=== PATIENT | male | born 1980 | race African-American/Black ===

== ENCOUNTER 2016-08-12 17:39 | Emergency (ER) | payer OTHER ==
[2016-08-12] MEDS ORDERED: Promethazine HCl 25 MG/ML VIAL ONE (17:52)
[2016-08-12] MEDS ORDERED: Pantoprazole 40 MG VIAL ONE (18:37)
[2016-08-12 18:41] LABS: Hematocrit 43.2 % (42.0-52.0)
[2016-08-12 18:45] LABS: Lactic Acid - Sepsis 2.8 mmol/L (0.5-2.2)
[2016-08-12 18:47] LABS: PTT 26.3 SEC (22.9-36.1)
[2016-08-12 18:52] LABS: ALT (SGPT) 43 U/L (0-55); AST (SGOT) 29 U/L (5-34); Alkaline Phosphatase 105 U/L (40-150); Amylase 47 U/L (25-125); Anion Gap 21 mmol/L (10-20); BUN (Urea Nitrogen) 15 mg/dL (8.9-20.6); Bilirubin, Total 0.4 mg/dL (0.2-1.2); Calc. Creatinine Clearance 0 mL/min (70-130); Carbon Dioxide 19 mmol/L (22-29); Chloride 101 mmol/L (98-107); Estimated GFR-MDRD 79; Globulin 3.6 g/dL (2.4-3.5); Lipase 4 U/L (8-78); Protein, Total 7.7 g/dL (6.0-8.3)
[2016-08-12 19:20] LABS: Bilirubin Negative (Negative); Blood, Urine Negative (Negative); Glucose, Urine (Dipstick) 500 mg/dL (Negative); Ketone, Urine 40 mg/dL (Negative); Nitrite Negative (Negative); Protein, Urine (Dipstick) 30 mg/dL (Neg-Trace); Urobilinogen 0.2 mg/dL (0.2-1.0)
[2016-08-12 19:28] LABS: RBC/HPF 0-3 HPF (0-3); WBC/HPF 0-3 HPF (0-3)
[2016-08-12] MEDS ORDERED: Piperacillin/Tazobactam 3.375 GM VIAL ONE (19:54)
[2016-08-12] MEDS ORDERED: Sodium Chloride 0.9% 100 ML ONE (19:55)
[2016-08-12] MEDS ORDERED: Sodium Chloride 0.9% 250 ML 250 ML ONE (20:15)
--- NOTE | 2016-08-12 20:33 | RAD ---
PORTABLE CHEST: Date: 08-12-16 Time: 6:21 p.m. History: Nausea, vomiting. FINDINGS: The heart size is normal. The lungs are expanded without focal areas of consolidation, pneumothorax , or pleural effusions. IMPRESSION: No radiographic evidence of acute cardiopulmonary process. POS: [facility]
[2016-08-12] MEDS ORDERED: Morphine Sulfate 2 MG/ML SYRINGE ONE (20:35)
[2016-08-12] MEDS ORDERED: Sodium Chloride 0.9% 1,000 ML ONE (20:35)
[2016-08-12 21:04] LABS: Base Excess -1.3 mEq/L (0 (+/- 2.5)); pH (venous) 7.37 (7.34-7.37)
--- NOTE | 2016-08-12 21:11 | CT ---
CT ABDOMEN AND PELVIS WITHOUT CONTRAST: History: Nausea, vomiting. FINDINGS: Absence of oral and IV contrast reduces the sensitivity of the exam for evaluation of solid organs a nd bowel. FINDINGS: There is a 9 mm peripheral nodule in the right lower lobe. A 6 mm nodule is seen in the left lung b ase. No free air or free fluid is seen in the abdomen or pelvis. No calcified gallstones are ident ified. No calculi are seen in the kidneys, ureters, or the urinary bladder. No hydroureteronephrosis is se en on either side. The small bowel loops are not abnormally dilated. There is fecal material in th e colon. No acute sesamoids are seen. IMPRESSION: 1. Bibasilar lung nodules. Dedicated CT scan of the chest is recommended on a non-emergent basis. 2. No CT evidence of urinary tract calculi or obstruction. POS: [facility]
[2016-08-12] MEDS ORDERED: Insulin Regular 300 UNITS/3 ML VIAL ONE (21:29)
[2016-08-12 21:35] LABS: Hematocrit 38.9 % (42.0-52.0)
[2016-08-12 21:37] LABS: Mean Platelet Volume 7.6 fL (7.4-10.4); Red Blood Cell (RBC) Count 5.03 mill/uL (4.70-6.10); White Blood Cell (WBC) Count 7.4 thou/uL (4.8-10.8)
[2016-08-12 21:38] LABS: #Basophils 0.8 thou/uL (0.0-0.2); #Lymphocytes 0.8 thou/uL (1.20-3.40); #Monocytes 0.6 thou/uL (0.11-0.59); #Neutrophils 5.8 thou/uL (1.40-6.50); %Basophils 1.1 % (0.0-1.0); %Eosinophils 0.5 % (0.0-10.0); %Lymphocytes 10.9 % (21.0-51.0); %Monocytes 8.2 % (0.0-10.0)
--- NOTE | 2016-08-12 22:16 | ERRECORD ---
[facility] EMERGENCY RECORD ADMIN (18:36 LCAS) MERGE: Ambulance Sun Aug 12, 2016 17:27. HPI GI BLEED (19:23 JOHE) CHIEF COMPLAINT: Patient presents for evaluation of hematemesis, Number of times: 1, described as bright red blood. HISTORIAN: History provided by patient, Additional history obtained from EMS, Pt. comes from [facility] with complaint of one week of nonbloody, nonbilious emesis, and development yesterday of subjective F&C. Today patient reports vomited so many times that he began having pain in the chest and throat, followed by one episode of reportedly large amount of bright red blood (patient cannot quantify the amount), so patient brought to ED. Patient reports burning epigastric pain radiating to the chest, and N&V. States he has also had watery black diarrhea several times daily for past several days. Patient denies fall, trauma, change in diet and ill contacts. No other sources of bleeding or excessive bruising. Patient does report that he has a gastric ulcer, for which he takes ranitidine. Not taking any blood thinning medications. LOCATION: Symptoms are localized, most severe in the epigastrium, Radiation to the chest, No migration of pain. QUALITY: Pain is sharp in nature, described as stabbing, described as burning. SEVERITY: Maximum severity of symptoms severe, Currently symptoms are severe. TIME COURSE: Gradual onset of symptoms, 7, days ago, Symptoms are constant, Symptoms are worsening. ASSOCIATED WITH: Associated with abdominal pain, Associated with chills, Associated with dizziness, Associated with fever, No associated flank pain, Associated with loss of appetite, Associated with nausea, No associated night sweats, No associated rectal surgery, No associated syncope, No associated trauma, Associated with inability to tolerate oral intake, Associated with vomiting, Associated with weakness, Denies any other complaints. EXACERBATED BY: Patient's condition exacerbated by eating. RELIEVED BY: Patient's condition relieved by nothing. RISK FACTOR: Risk factors for GI bleed, No non-steroidal anti-inflammatory drug use, No alcohol abuse, No smoking, No congestive heart failure, No liver disease, No coagulopathy, No Helicobacter pylori infection, No Spencer-Wallace syndrome, include history of previous GI bleed, No history of AAA repair. ROS (19:28 JOHE) CONSTITUTIONAL: Historian reports chills, reports fever, reports malaise, denies night sweats, reports weakness. EYES: Historian denies eye pain, denies eye redness, denies &a-1R&a+25V*p+0X*[id number]*c202B*c15G*c2P*p-0X&a-25V&a+1R Name: Carlos Luna : 1980 M36 MedRec: [id number] AcctNum: [id number] Prepared: SatAug 13, 2016 05:43 by Interface Page 1 of 6 pMD [facility] EMERGENCY RECORD vision changes. ENT: Historian denies drooling, denies dysphagia, denies epistaxis, denies otalgia, denies rhinorrhea, denies sinus pain, reports sore throat, denies stridor, denies voice changes. CARDIOVASCULAR: Historian reports chest pain, denies diaphoresis, denies dyspnea on exertion, denies orthopnea, denies syncope, denies palpitations. no carotid bruits. RESPIRATORY: Historian denies cough, reports shortness of breath, denies sputum, denies stridor, denies wheezing. GI: Historian reports abdominal pain, reports appetite changes, denies constipation, reports diarrhea, reports hematemesis, denies hematochezia, reports melena, reports nausea, reports stool changes, reports vomiting. GENITOURINARY MALE: Historian denies dysuria, denies hematuria, reports hesitancy, denies urinary frequency, reports urine output changes, denies urinary urgency. MUSCULOSKELETAL: Historian denies back pain, denies joint redness, denies joint stiffness, denies joint swelling, denies neck pain. SKIN: Historian denies rash, denies skin changes, denies skin lesions. NEUROLOGIC: Historian reports dizziness, denies focal weakness, denies gait changes, denies headache, denies paralysis, denies paresthesias, denies seizures. HEMO/LYMPHATIC: Historian denies abnormal blood clotting, denies easy bruising, denies gum bleeding, denies petechiae. PSYCHIATRIC: Historian denies alcohol abuse, denies drug abuse. NOTES: All systems reviewed, negative except as described above. PAST MEDICAL HISTORY (17:52 LCAS) MEDICAL HISTORY: Notes: GASTROPARESIS, SEIZURES, Past medical history includes history of diabetes, history of hyperlipidemia, history of hypertension, pulmonary disease. asthma. MALE SURGICAL HISTORY: Patient has no surgical history. PSYCHIATRIC HISTORY: Psychiatric history includes, depression. SOCIAL HISTORY: Patient denies alcohol use, Patient denies drug use, Patient has no smoking history, Lives, HALFWAY. KNOWN ALLERGIES No Known Drug Allergies CURRENT MEDICATIONS Aspir-81: TABLET, DELAYED RELEASE (ENTERIC COATED) : Strength - 81 mg : ORAL Patient Dose: 81 mg Oral once a day. (18:31 LCAS) levETIRAcetam: TABLET : Strength - 1,000 mg : ORAL &a-1R&a+25V*p+0X*[id number]*c202B*c15G*c2P*p-0X&a-25V&a+1R Name: Carlos Luna : 1980 M36 MedRec: [id number] AcctNum: [id number] Prepared: SatAug 13, 2016 05:43 by Interface Page 2 of 6 pMD [facility] EMERGENCY RECORD Patient Dose: 2 times a day (before meals). (18:32 LCAS) lisinopril: TABLET : Strength - 20 mg : ORAL Patient Dose: 20 mg Oral once a day. (18:32 LCAS) nortriptyline: CAPSULE : Strength - 75 mg : ORAL Patient Dose: once a day (in the evening). (18:32 LCAS) pravastatin: TABLET : Strength - 20 mg : ORAL Patient Dose: once a day (in the evening). (18:33 LCAS) ranitidine HCl: TABLET : Strength - 150 mg : ORAL Patient Dose: 150 mg Oral 2 times a day. (18:33 LCAS) hydrochlorothiazide: TABLET : Strength - 25 mg : ORAL Patient Dose: 25 mg Oral once a day. (18:34 LCAS) FLUoxetine: CAPSULE : Strength - 40 mg : ORAL Patient Dose: 40 mg Oral once a day. (18:34 LCAS) NovoLIN N: CARTRIDGE (ML) : Strength - 100 unit/mL : SUBCUTANEOUS Patient Dose: 18/16 units Subcutaneous 2 times a day.18 IN AM 16 IN PM. (18:34 LCAS) Qvar: AEROSOL WITH ADAPTER (GRAM) : Strength - 40 mcg : INHALATION Patient Dose: 80 mcg Inhaler 2 times a day. (18:35 LCAS) VITAL SIGNS VITAL SIGNS: BP: 181/96, Pulse: 117, Resp: 20, Temp: 99.1 (Oral), O2 sat: 97, Time: 08/12/2016 17:44. (17:44 LCAS) BP: 171/92, Pulse: 120, Resp: 21, O2 sat: 98 on RA, Time: 08/12/2016 18:51. (18:51 LCAS) BP: 168/87, Pulse: 113, Resp: 20, O2 sat: 99 on Room Air, Time: 08/12/2016 20:30. (20:30 [facility]) Pain: 9, Time: 08/12/2016 20:35. (20:35 [facility]) BP: 156/100, Pulse: 118, Resp: 20, O2 sat: 98 on Room Air, Time: 08/12/2016 22:02. (22:02 [facility]) BP: 151/83, Pulse: 115, Resp: 20, Pain: 7, O2 sat: 99 on Room Air, Time: 08/12/2016 21:30. (21:30 [facility]) BP: 143/86, Pulse: 114, Resp: 20, O2 sat: 97 on Room Air, Time: 08/12/2016 19:45. (19:45 [facility]) Temp: 99.8 (Oral), Time: 08/12/2016 22:06. (22:06 [facility]) PHYSICAL EXAM (19:30 [facility]) CONSTITUTIONAL: Vital Signs Reviewed, Patient appears non toxic, Patient alert and oriented to person, place and time. HEAD: Head exam normal, Head exam included findings of head atraumatic, normocephalic. EYES: Eye exam normal, Eye exam included findings of eyelids normal to inspection, Pupils equally round and reactive to light, &a-1R&a+25V*p+0X*[id number]*c202B*c15G*c2P*p-0X&a-25V&a+1R Name: Carlos Luna : 1980 M36 MedRec: [id number] AcctNum: [id number] Prepared: SatAug 13, 2016 05:43 by Interface Page 3 of 6 pMD [facility] EMERGENCY RECORD Extraocular muscles intact, Conjunctiva normal, Sclera normal, No scleral icterus or pallor. ENT: Nose exam normal, no nasal deformity, no bleeding from nares, no bleeding from hypopharynx, no foreign body visualized, no septal hematoma, no septal necrosis, No turbinate mucosa discharge, Pharynx, injected bilaterally, no swelling, symmetrical, Uvula exam normal, midline, no edema, Tonsil exam normal, not enlarged, no exudates, Mouth exam included findings of, mucous membranes dry, no drooling, no lesions, no lacerations, Tongue not elevated. NECK: Neck exam normal, Neck exam included findings of normal range of motion, Trachea midline, no carotid bruits, no meningeal signs, no tenderness, no abrasions, no contusions, no ecchymosis. RESPIRATORY CHEST: Respiratory and chest exam normal, Respiratory exam included findings of no respiratory distress, Breath sounds clear, No wheezing, No rales, No rhonchi, Breath sounds not absent, Breath sounds not diminished, Chest exam included findings of chest movement symmetrical, Chest expansion equal, CTAB, good air movement bilaterally. CARDIOVASCULAR: Cardiovascular exam included findings of, rate tachycardic, rhythm regular, Heart sounds normal, Pedal pulses normal, Tachy, RR, no R/M/G. + pulses all ext., no bruits, no edema. ABDOMEN MALE: Abdominal exam included findings of abdomen tender, diffusely, moderate intensity, Bowel sounds normal, no pulsatile masses, no peritoneal signs, no rigidity, no guarding, no rebound, Soft, ND, mildly TTP diffusely, greatest in epigastrium. No guarding or rebound. + BS. No CVAT. BACK: Back exam normal, Back exam included findings of normal inspection, range of motion normal, no costovertebral angle tenderness. UPPER EXTREMITY: Upper extremity exam normal, Upper extremity exam included findings of inspection normal, Range of motion normal, Motor strength normal, Radial pulse normal. LOWER EXTREMITY: Lower extremity exam normal, Lower extremity exam included findings of inspection normal, Range of motion normal, Motor strength normal, Posterior tibial pulse normal, Pedal pulse normal, no edema. NEURO: Norman coma scale 15, Neuro exam findings include patient oriented to person, place and time, Speech normal, Cranial nerves intact, no focal motor deficits, no focal sensory deficits. SKIN: Skin exam normal, Skin exam included findings of skin warm, dry, and normal in color, no rash. EKG INTERPRETATION (18:11 JOHE) 12 LEAD EKG INTERPRETATION: 12 lead EKG interpreted by Emergency Department Physician at time of study, 12 lead EKG shows, sinus tachycardia, Rate (beats per minute): 113, with no ectopics, Conduction normal, ST segments normal, T waves normal, [place] normal, No other findings. &a-1R&a+25V*p+0X*m0068Y*c202B*c15G*c2P*p-0X&a-25V&a+1R Name: Carlos Luna : 1980 M36 MedRec: [id number] AcctNum: [id number] Prepared: SatAug 13, 2016 05:43 by Interface Page 4 of 6 pMD [facility] EMERGENCY RECORD MEDICATION ADMINISTRATION SUMMARY Drug Name: HumuLIN R, Dose Ordered: 5 units, Route: IV Push, Status: Given, Time: 21:35 08/12/2016, Drug Name: morphine intravenous, Dose Ordered: 2 mg, Route: IV Push, Status: Given, Time: 20:41 08/12/2016, Drug Name: Normal Saline, Dose Ordered: 1000 mg, Route: IV Fluid Infusion, Status: Given, Time: 20:40 08/12/2016, Drug Name: vancomycin intravenous, Dose Ordered: 1 g, Route: IV Piggy Back, Status: Given, Time: 20:30 08/12/2016, Drug Name: Zosyn, Dose Ordered: 3.375 g, Route: IV Piggy Back, Status: Given, Time: 20:05 08/12/2016, Drug Name: Protonix intravenous, Dose Ordered: 80 mg, Route: IV Push, Status: Given, Time: 18:50 08/12/2016, Drug Name: morphine intravenous, Dose Ordered: 4 mg, Route: IV Push, Status: Given, Time: 18:49 08/12/2016, Drug Name: Normal Saline, Dose Ordered: 1000 mg, Route: IV Fluid Infusion, Status: Given, Time: 17:55 08/12/2016, Drug Name: Phenergan injection, Dose Ordered: 25 mg, Route: Intramuscular, Status: Given, Time: 17:55 08/12/2016, Detailed record available in Medication Service section. DOCTOR NOTES TEXT: Discussed patient with Dr. Kaufman at [facility], who says he only takes call for the floor, and wants us to talk to ICU physician before accepting transfer. They will call us back shortly. (21:27 JOHE) [facility] (Dr. Hansen and Dr. Kaufman) feel patient would benefit from not going to [facility] due to distance, better to stay at [facility]. Discussed patient with Dr. Garcia, who accepts patient in transfer to [facility]. (21:57 JOHE) Addendum (correction) - Patient was transferred in stable condition via ambulance to [facility]. Patient was not transferred to [facility]. Dr. Garcia accepted patient to [facility] not [facility]. (SatAug 13, 2016 05:37 JOHE) PROBLEM LIST No recorded problems DIAGNOSIS (20:13 JOHE) FINAL: PRIMARY: gi bleed, ADDITIONAL: Lactic acidosis. PRESCRIPTION No recorded prescriptions DISPOSITION PATIENT: Disposition Type: Transfer, Disposition: [facility] - [place], Disposition Transport: Ambulance, Condition: Fair. (20:13 JOHE) &a-1R&a+25V*p+0X*p1393D*c202B*c15G*c2P*p-0X&a-25V&a+1R Name: Carlos Luna : 1980 [facility] [place] MedRec: [id number] AcctNum: [id number] Prepared: SatAug 13, 2016 05:43 by Interface Page 5 of 6 pMD [facility] EMERGENCY RECORD Patient left the department. (22:41 [facility]) Disposition: Transfer to [facility]. (SatAug 13, 2016 05:12 [facility]) Mckeon: ZANDER=MD Anton, Chago MONTANO=JESSENIA Andrade, Germania [facility]=JESSENIA Mcginnis, Quiana &a-1R&a+25V*p+0X*[id number]*c202B*c15G*c2P*p-0X&a-25V&a+1R Name: Carlos Luna : 1980 6 MedRec: [id number] AcctNum: [id number] Prepared: SatAug 13, 2016 05:43 by Interface Page 6 of 6 pMD MTDD
--- NOTE | 2016-08-12 22:22 | PICIS ---
[facility] EMERGENCY RECORD ADMIN MERGE: Ambulance SatAug 12, 2016 17:27. (18:36 LCAS) TRIAGE ([place] Aug 12, 2016 17:42 BE) PATIENT: NAME: Carlos Luna, AGE: 36, GENDER: male, : Sat1980, TIME OF GREET: SatAug 12, 2016 17:39, ECODE BILLING MAP: [facility], Zip Code: [address], KG WEIGHT: 72.57, PHONE: , , , PERSON ID: [id number]. (SatAug 12, 2016 17:42 BE) TRIAGE NOTES: N/V. (SatAug 12, 2016 17:42 BE) COMPLAINT: NAUSEA,VOMITING. ([place] Aug 12, 2016 17:42 BE) ADMISSION: URGENCY: 4 Non Urgent, ADMISSION SOURCE: Detention/[facility], TRANSPORT: AMBULANCE - [facility], BED: ER -04. ([place] Aug 12, 2016 17:42 MCBE) SIRS SCORING: Heart Rate 110-139 (2), Temp range 96.8-101.1 (0), respiratory rate 12-24 (0), Mental Status altered: no (0), Infection or Suspected Infection: No. (17:52 LCAS) TRIAGE SCREENING: Patient denies suicidal ideation, Patient denies presence of domestic violence. (17:52 LCAS) TREATMENTS IN PROGRESS: Site: L hand, Gauge: 22, IV: .9NS, Amount Infused 100ML, Treatments given Prehospital: ZOFRAN. (17:52 LCAS) PROVIDERS: TRIAGE NURSE: Inessa Mabry. ([place] Aug 12, 2016 17:42 BE) KNOWN ALLERGIES No Known Drug Allergies CURRENT MEDICATIONS Aspir-81: TABLET, DELAYED RELEASE (ENTERIC COATED) : Strength - 81 mg : ORAL Patient Dose: 81 mg Oral once a day. (18:31 LCAS) levETIRAcetam: TABLET : Strength - 1,000 mg : ORAL Patient Dose: 2 times a day (before meals). (18:32 LCAS) lisinopril: TABLET : Strength - 20 mg : ORAL Patient Dose: 20 mg Oral once a day. (18:32 LCAS) nortriptyline: CAPSULE : Strength - 75 mg : ORAL Patient Dose: once a day (in the evening). (18:32 LCAS) pravastatin: TABLET : Strength - 20 mg : ORAL Patient Dose: once a day (in the evening). (18:33 LCAS) ranitidine HCl: TABLET : Strength - 150 mg : ORAL Patient Dose: 150 mg Oral 2 times a day. (18:33 LCAS) hydrochlorothiazide: TABLET : Strength - 25 mg : ORAL Patient Dose: 25 mg Oral once a day. (18:34 LCAS) &a-1R&a+25V*p+0X*y9886V*c202B*c15G*c2P*p-0X&a-25V&a+1R Name: Carlos Luna : 1980 6 MedRec: [id number] AcctNum: [id number] Prepared: SatAug 13, 2016 05:43 by Interface Page 1 of 21 pMD [facility] EMERGENCY RECORD FLUoxetine: CAPSULE : Strength - 40 mg : ORAL Patient Dose: 40 mg Oral once a day. (18:34 LCAS) NovoLIN N: CARTRIDGE (ML) : Strength - 100 unit/mL : SUBCUTANEOUS Patient Dose: 18/16 units Subcutaneous 2 times a day.18 IN AM 16 IN PM. (18:34 LCAS) Qvar: AEROSOL WITH ADAPTER (GRAM) : Strength - 40 mcg : INHALATION Patient Dose: 80 mcg Inhaler 2 times a day. (18:35 LCAS) VITAL SIGNS VITAL SIGNS: BP: 181/96, Pulse: 117, Resp: 20, Temp: 99.1 (Oral), O2 sat: 97, Time: 08/12/2016 17:44. (17:44 LCAS) BP: 171/92, Pulse: 120, Resp: 21, O2 sat: 98 on RA, Time: 08/12/2016 18:51. (18:51 LCAS) BP: 168/87, Pulse: 113, Resp: 20, O2 sat: 99 on Room Air, Time: 08/12/2016 20:30. (20:30 [facility]) Pain: 9, Time: 08/12/2016 20:35. (20:35 [facility]) BP: 156/100, Pulse: 118, Resp: 20, O2 sat: 98 on Room Air, Time: 08/12/2016 22:02. (22:02 [facility]) BP: 151/83, Pulse: 115, Resp: 20, Pain: 7, O2 sat: 99 on Room Air, Time: 08/12/2016 21:30. (21:30 [facility]) BP: 143/86, Pulse: 114, Resp: 20, O2 sat: 97 on Room Air, Time: 08/12/2016 19:45. (19:45 [facility]) Temp: 99.8 (Oral), Time: 08/12/2016 22:06. (22:06 [facility]) NURSING ASSESSMENT: ABDOMEN WITH PROCEDURES (17:44 [facility]) CONSTITUTIONAL: Complex assessment performed, Patient arrives, via Emergency Medical Services, Unsteady gait, Assistance to cart, History obtained from patient, Patient appears, generally ill, Patient cooperative, Patient alert, Oriented to person, place and time, Skin warm, Skin dry, Skin normal in color, Mucous membranes pink, Mucous membranes, dry, Patient is well-groomed. ABDOMEN: Abdomen assessment findings include abdomen symmetrical, Abdomen soft, tender, diffusely, Associated with nausea, Associated with vomiting, history of vomiting, REPORTS VOMITING X 1 WEEK WITH 1 EPISODE OF VOMITING BLOOD, Associated with diarrhea, watery. GENITOURINARY MALE: Associated with urinary complaints described as, difficulty urinating. SAFETY: Side rails up, Cart/Stretcher in lowest position, Call light within reach, Hospital ID band on, Notes: GUARDS AT BS. NURSING ASSESSMENT: FALL RISK (22:01 [facility]) FALL RISK: Fall risk assessment findings include: no history of falls (0), Total score 0, No risk for fall. &a-1R&a+25V*p+0X*c6992P*c202B*c15G*c2P*p-0X&a-25V&a+1R Name: Carlos Luna : 1980 M36 MedRec: [id number] AcctNum: [id number] Prepared: SatAug 13, 2016 05:43 by Interface Page 2 of 21 pMD [facility] EMERGENCY RECORD NURSING ASSESSMENT: SKIN (22:07 [facility]) SKIN: Inspection findings include: No pressure ulcer to the shoulder, Inspection findings include no pressure ulcer to the elbow, Inspection findings include no pressure ulcers to the hip, Inspection findings include no pressure ulcer to the sacrum, Inspection findings include no pressure ulcer to the heel, Inspection findings include no pressure ulcer, Inspection findings include no pressure ulcer. NURSING PROCEDURE: BEDSIDE SIRS TESTING (22:05 [facility]) SCORES: Heart Rate 55-109 (0), Temp range 96.8-101.1 (0), respiratory rate 12-24 (0), Latest WBC 3-14.9 (0), Mental Status altered: no (0). NURSING PROCEDURE: BEDSIDE TESTING GLUCOSE: Glucose testing indicated for hyperglycemia, Venous blood sample, Result (mg/dl) 294. (21:20 [facility]) Glucose testing indicated for hyperglycemia, Capillary blood sample, Result (mg/dl) 220. (22:15 [facility]) FOLLOW-UP: After procedure, results given to Dr. KNIGHT. (22:15 [facility]) NURSING PROCEDURE: ELECTROMECHANIC (17:42 [facility]) ELECTROMECHANIC: Cardiac monitoring indicated for TACHYCARDIC, Patient placed on monitoring manager, Patient placed on non-invasive blood pressure monitor, with disposable blood pressure cuff applied, Patient placed on continuous pulse oximetry, Adult/pediatric oxisensor applied, Oxygen saturation 98%. FOLLOW-UP: After procedure, alarms set and on, After procedure, patient tolerating monitoring. NURSING PROCEDURE: EKG CHART (18:09 [facility] PATIENT IDENTIFIER: Patient actively involved in identification process, Patient's identity verified by patient stating name, Patient's identity verified by patient stating date, Patient's identity verified by hospital ID bracelet. EKG: EKG indicated for n/v. FOLLOW-UP: After procedure, EKG for interpretation given to Dr. KNIGHT. NURSING PROCEDURE: IV IV SITE 1: IV established, to the right hand, using a 20 gauge catheter, in four attempts, Saline lock established, Flushed with normal saline (mls): 10, Labs drawn at time of placement, labeled in the presence of the patient and sent to lab. (18:26 LCAS) IV SITE 2: IV established, to the left hand, using a 22 gauge catheter, Saline lock established, Notes: STARTED INTERACTIVE MEDIA MARKETING DIRECTOR. IV INTACT. (18:51 LCAS) FOLLOW-UP SITE 1: After procedure, 2x3 ensure dressing applied, &a-1R&a+25V*p+0X*h6070V*c202B*c15G*c2P*p-0X&a-25V&a+1R Name: Carlos Luna : 1980 M36 MedRec: [id number] AcctNum: [id number] Prepared: SatAug 13, 2016 05:43 by Interface Page 3 of 21 pMD [facility] EMERGENCY RECORD After procedure, IV line connections checked and properly labeled, After procedure, no drainage at IV site, After procedure, no swelling at IV site, After procedure, no redness at IV site. (18:26 [facility]AS) NOTES: Notes: BILATERAL IV'S CONTINUED UPON TRANSFER. (22:28 [facility]) SAFETY: Side rails up, Cart/Stretcher in lowest position, Call light within reach, Hospital ID band on. (18:26 [facility]) NURSING PROCEDURE: LAB DRAW PATIENT IDENTIFIER: Patient actively involved in identification process, Patient's identity verified by patient stating name, Patient's identity verified by patient stating date, Patient's identity verified by hospital ID bracelet. (19:40 [facility]) LAB DRAW: Lab draw indicated for obtaining specimens for evaluation, Lab draw indicated for 2nd set of Blood Cultures, Initial lab draw performed, by venipuncture, from right hand, in one attempt, Blood cultures labeled in the presence of the patient and sent to lab. (19:40 [facility]) Lab draw indicated for obtaining specimens for evaluation, Subsequent lab draw performed, from vascular access device, existing IV site, SITE #2- LEFT HAND, After labs drawn, device flushed with saline, Lab specimens labeled in the presence of the patient and sent to lab, 10ML WASTED. 3ML DRAWN FOR SAMPLE, Notes: VBG. (20:55 [facility]) Lab draw indicated for obtaining specimens for evaluation, Subsequent lab draw performed, from vascular access device, SITE #2- LEFT HAND, After labs drawn, device flushed with saline, Lab specimens labeled in the presence of the patient and sent to lab, 10ML WASTED. 3ML DRAWN FOR SAMPLE, Notes: H&H RECHECK. (21:20 [facility]) FOLLOW-UP: After procedure, dressing applied to site, After procedure, no swelling at site, After procedure, no active bleeding from site. (19:40 [facility]) NURSING PROCEDURE: NURSE NOTES NURSES NOTES: Notes: PT AT RADIOLOGY. (18:30 LCAS) Patient in no apparent distress, Patient resting quietly. (18:51 LCAS) Patient in no apparent distress, Notes: PATIENT REPORT DIFFICULTY BREATHING AND FEELING LIKE HIS THROAT IS CLOSING. MD NOTIFIED. LUNG SOUNDS CLEAR BILATERALLY. THROAT EXAM UNREMARKABLE. (18:52 LCAS) Notes: URINE COLLECTED AND SENT TO LAB. BC X1 COLLECTED FROM LEFT HAND. (19:14 LCAS) Patient in no apparent distress, Patient resting quietly, Shift change report given, Notes: GUARDS AT BS. (19:17 LCAS) Notes: call from Jacquelyn (coordinator) at [facility] requesting further information, will call back and let us know if a bed is available. (20:37 [facility]) VITAL SIGNS: BP: 171, / 92, Pulse: 120, Resp: 21, O2 sat: 98, on: RA. (18:51 LCAS) NURSING PROCEDURE: TRANSFER (22:28 [facility]) &a-1R&a+25V*p+0X*p3910Y*c202B*c15G*c2P*p-0X&a-25V&a+1R Name: Carlos Luna : 1980 M36 MedRec: [id number] AcctNum: [id number] Prepared: SatAug 13, 2016 05:43 by Interface Page 4 of 21 D [facility] EMERGENCY RECORD TRANSFER: Reason for transfer need for specialized care, Diagnosis: UPPER GI BLEED, Accepting institution: [facility] ER, Accepting physician: RAMONA, Referring physician: ANTONIA, Transported by non-urgent ambulance, accompanied by emergency medical services personnel, Report called to receiving facility, JESSENIA HARRIS, Provided opportunity to answer questions, Summary of Care printed, Copy of patient record prepared for receiving facility, Patient consent for transfer signed. BELONGINGS: Belongings and valuables with patient upon arrival to the Emergency Department include:, Belongings and valuables with patient at time of discharge include:, Belongings remain with patient, Valuables remain with patient. EQUIPMENT WITH PATIENT: Equipment with patient at time of transfer monitoring manager, Saline lock intact and patent at time of transfer. NURSING PROCEDURE: TRANSPORT TO TESTS TRANSPORT TO TESTS: Patient transported to CT scan, via cart, Accompanied by x-ray technician test systems. (18:10 [facility]) Patient arrived in location at 18:03, Patient departed location at 18:18. (18:37 [facility]) ORDER DETAILS Order Name: Acetone-Serum, Status: Active, Time: 19:10 08/12/2016, User: DARRION, - Ordered for: MD Knight John, - Entered by: JESSENIA Guan, Adela Norris Aug 12, 2016 19:10, - Quantity: 1, Order Name: Acetone-Serum, Status: Active, Time: 18:55 08/12/2016, User: ZANDER, - Ordered for: MD Knight John, - Entered by: MD Knight John - Sun Aug 12, 2016 18:55, - Quantity: 1, Order Name: Amylase, Status: Active, Time: 17:54 08/12/2016, User: ZANDER, - Ordered for: MD Knight John, - Entered by: MD Knight John - Sun Aug 12, 2016 17:54, - Quantity: 1, Order Name: ELECTROMECHANIC ED, Status: Done, Time: 18:09 08/12/2016, User: TRACEY, - Ordered for: MD Knight John, - Entered by: MD Knight John - Sun Aug 12, 2016 17:54, - Quantity: 1, Order Name: CBC with Differential, Status: Active, Time: 21:07 08/12/2016, User: ZANDER, - Ordered for: MD Knight John, - Entered by: MD Knight John - Sun Aug 12, 2016 21:07, - Quantity: 1, Order Name: CBC with Differential, Status: Active, Time: 17:54 &a-1R&a+25V*p+0X*u8697G*c202B*c15G*c2P*p-0X&a-25V&a+1R Name: Carlos Luna : 1980 M36 MedRec: [id number] AcctNum: [id number] Prepared: SatAug 13, 2016 05:43 by Interface Page 5 of 21 [facility] EMERGENCY RECORD 08/12/2016, User: ZANDER, - Ordered for: MD Knight John, - Entered by: MD Knight John - Sun Aug 12, 2016 17:54, - Quantity: 1, Order Name: Comprehensive Metabolic Panel, Status: Active, Time: 17:54 08/12/2016, User: ZANDER, - Ordered for: MD Knight John, - Entered by: MD Knight John - Sun Aug 12, 2016 17:54, - Quantity: 1, Order Name: CT Abdomen Pelvis WO Con, Status: Active, Time: 17:54 08/12/2016, User: ZANDER, - Ordered for: MD Knight John, - Entered by: MD Knight John - Sun Aug 12, 2016 17:54, - Quantity: 1, Order Name: Culture, Blood, Status: Active, Time: 18:58 08/12/2016, User: ZANDER, - Ordered for: MD Knight John, - Entered by: MD Knight John Myrna Aug 12, 2016 18:58, - Quantity: 1, Order Name: Culture, Urine, Status: Active, Time: 18:58 08/12/2016, User: ZANDER, - Ordered for: MD Knight John, - Entered by: MD Knight John Myrna Aug 12, 2016 18:58, - Quantity: 1, Order Name: Diet: Nothing by Mouth (NPO), Status: Done, Time: 18:25 08/12/2016, User: TRACEY, - Ordered for: MD Knight John, - Entered by: MD Knight John Myrna Aug 12, 2016 17:54, - Quantity: 1, Order Name: EKG 12 Lead in Emergency Room, Status: Active, Time: 17:54 08/12/2016, User: ZANDER, - Ordered for: MD Knight John, - Entered by: MD Knight John Myrna Aug 12, 2016 17:54, - Quantity: 1, Order Name: ERRT Pulse Oximeter ER, Status: Active, Time: 17:54 08/12/2016, User: ZANDER, - Ordered for: MD Knight John, - Entered by: MD Knight John Myrna Aug 12, 2016 17:54, - Quantity: 1, Order Name: Lactic Acid with repeat, Status: Active, Time: 17:58 08/12/2016, User: ZANDER, - Ordered for: MD Knight John, - Entered by: MD Knight John - Sun Aug 12, 2016 17:58, - Quantity: 1, Order Name: Lipase, Status: Active, Time: 17:54 08/12/2016, User: ZANDER, - Ordered for: MD Knight John, - Entered by: MD Knight John - Sun Aug 12, 2016 17:54, - Quantity: 1, Order Name: Occult Blood, Stool DIAGNOSTIC(Guiac), Status: Active, Time: 19:09 08/12/2016, User: DARRION, &a-1R&a+25V*p+0X*d6203F*c202B*c15G*c2P*p-0X&a-25V&a+1R Name: Carlos Luna : 1980 M36 MedRec: [id number] AcctNum: [id number] Prepared: SatAug 13, 2016 05:43 by Interface Page 6 of 21 pMD [facility] EMERGENCY RECORD - Ordered for: MD Knight John, - Entered by: JESSENIA Guan, Adela - Myrna Aug 12, 2016 19:09, - Quantity: 1, Order Name: Protime with INR, Status: Active, Time: 17:54 08/12/2016, User: ZANDER, - Ordered for: MD Knight John, - Entered by: MD Knight John - Sun Aug 12, 2016 17:54, - Quantity: 1, Order Name: PTT, Status: Active, Time: 17:54 08/12/2016, User: ZANDER, - Ordered for: MD Knight John, - Entered by: MD Knight John - Sun Aug 12, 2016 17:54, - Quantity: 1, Order Name: SALINE LOCK, Status: Done, Time: 18:25 08/12/2016, User: TRACEY, - Ordered for: MD Knight John, - Entered by: MD Knight John - Sun Aug 12, 2016 17:54, - Quantity: 1, Order Name: Type & Screen, Status: Active, Time: 17:54 08/12/2016, User: ZANDER, - Ordered for: MD Knight John, - Entered by: MD Knight John Myrna Aug 12, 2016 17:54, - Quantity: 1, Order Name: Type & Screen, Status: Active, Time: 21:07 08/12/2016, User: ZANDER, - Ordered for: MD Knight John, - Entered by: MD Knight John Myrna Aug 12, 2016 21:07, - Quantity: 1, Order Name: Urinalysis w/ Rflx Microscopic, Status: Active, Time: 17:54 08/12/2016, User: ZANDER, - Ordered for: MD Knight John, - Entered by: MD Knight John Myrna Aug 12, 2016 17:54, - Quantity: 1, Order Name: Urinalysis w/ Rflx Microscopic, Status: Canceled, Time: 19:00 08/12/2016, User: CHARMAINE, - Ordered for: MD Knight John, - Entered by: MD Knight John [facility] Aug 12, 2016 18:54, - Quantity: 1, Order Name: VBG (For BUR,MAD, and POLLY), Status: Active, Time: 20:36 08/12/2016, User: ZANDER, - Ordered for: MD Knight John, - Entered by: MD Knight John Myrna Aug 12, 2016 20:36, - Quantity: 1, Order Name: XR Chest 1 View Portable, Status: Active, Time: 17:54 08/12/2016, User: ZANDER, - Ordered for: MD Knight John, - Entered by: MD Knight John Myrna Aug 12, 2016 17:54, - Quantity: 1. MEDICATION ADMINISTRATION SUMMARY &a-1R&a+25V*p+0X*q5379K*c202B*c15G*c2P*p-0X&a-25V&a+1R Name: Carlos Luna : 1980 M36 MedRec: [id number] AcctNum: [id number] Prepared: SatAug 13, 2016 05:43 by Interface Page 7 of 21 pMD [facility] EMERGENCY RECORD Drug Name: HumuLIN R, Dose Ordered: 5 units, Route: IV Push, Status: Given, Time: 21:35 08/12/2016, Drug Name: morphine intravenous, Dose Ordered: 2 mg, Route: IV Push, Status: Given, Time: 20:41 08/12/2016, Drug Name: Normal Saline, Dose Ordered: 1000 mg, Route: IV Fluid Infusion, Status: Given, Time: 20:40 08/12/2016, Drug Name: vancomycin intravenous, Dose Ordered: 1 g, Route: IV Piggy Back, Status: Given, Time: 20:30 08/12/2016, Drug Name: Zosyn, Dose Ordered: 3.375 g, Route: IV Piggy Back, Status: Given, Time: 20:05 08/12/2016, Drug Name: Protonix intravenous, Dose Ordered: 80 mg, Route: IV Push, Status: Given, Time: 18:50 08/12/2016, Drug Name: morphine intravenous, Dose Ordered: 4 mg, Route: IV Push, Status: Given, Time: 18:49 08/12/2016, Drug Name: Normal Saline, Dose Ordered: 1000 mg, Route: IV Fluid Infusion, Status: Given, Time: 17:55 08/12/2016, Drug Name: Phenergan injection, Dose Ordered: 25 mg, Route: Intramuscular, Status: Given, Time: 17:55 08/12/2016, Detailed record available in Medication Service section. MEDICATION SERVICE HumuLIN R: Order: HumuLIN R (insulin regular, human) - Dose: 5 units : IV Push Schedule: Now Ordered by: Chago Knight MD Entered by: MD Myrna Christy Aug 12, 2016 21:29 , Acknowledged by: JESSENIA Monahan Aug 12, 2016 21:33 Documented as given by: JESSENIA Monahan Aug 12, 2016 21:35 Patient, Medication, Dose, Route and Time verified prior to administration. Amount given: 5 units, IV SITE #1 IVP, initial medication, Catheter placement confirmed via flush prior to administration, IV site without signs or symptoms of infiltration during medication administration, No swelling during administration, No drainage during administration, IV flushed after administration, Correct patient, time, route, dose and medication confirmed prior to administration, Patient advised of actions and side-effects prior to administration, Allergies confirmed and medications reviewed prior to administration, Patient in position of comfort, Side rails up, Cart in lowest position, CO at bedside, Co-signed by: Quiana Mcginnis RN SatAug 13, 2016 00:15. : Follow Up : No signs or symptoms of allergic reaction noted, _IV SITE #1:_, BS DECREASED FROM 294 TO 220. (22:20 [facility]) morphine intravenous: Order: morphine intravenous (morphine sulfate) - Dose: 4 mg : IV Push Schedule: Now Ordered by: Chago Knight MD Entered by: Chago Knight MD [place] Aug 12, 2016 17:53 , Acknowledged by: Inessa Mabry SatAug 12, 2016 18:24 Documented as given by: Germania Andrade RN SatAug 12, 2016 18:49 &a-1R&a+25V*p+0X*c5498K*c202B*c15G*c2P*p-0X&a-25V&a+1R Name: Carlos Luna : 1980 M36 MedRec: [id number] AcctNum: [id number] Prepared: SatAug 13, 2016 05:43 by Interface Page 8 of 21 pMD [facility] EMERGENCY RECORD Patient, Medication, Dose, Route and Time verified prior to administration. Amount given: 4MG, initial medication, Slowly, IV SITE #2, IVP, Initial medication, Slowly, Awake and alert- acceptable, Catheter placement confirmed via flush prior to administration, IV site without signs or symptoms of infiltration during medication administration, No swelling during administration, No drainage during administration, IV flushed after administration, Correct patient, time, route, dose and medication confirmed prior to administration, Patient advised of actions and side-effects prior to administration, Allergies confirmed and medications reviewed prior to administration. morphine intravenous: Order: morphine intravenous (morphine sulfate) - Dose: 2 mg : IV Push Schedule: Now Ordered by: Chago Knight MD Entered by: Chago Knight MD [place] Aug 12, 2016 20:35 Documented as given by: Quiana Mcginnis RN [place] Aug 12, 2016 20:41 Patient, Medication, Dose, Route and Time verified prior to administration. Amount given: 2mg, IV SITE #1 IVP, Slowly, repeat same medication, Slowly, Awake and alert- acceptable, Catheter placement confirmed via flush prior to administration, IV site without signs or symptoms of infiltration during medication administration, No swelling during administration, No drainage during administration, IV flushed after administration, Correct patient, time, route, dose and medication confirmed prior to administration, Patient advised of actions and side-effects prior to administration, Allergies confirmed and medications reviewed prior to administration. : Follow Up : No signs or symptoms of allergic reaction noted, Decreased pain, _IV SITE #1:_. (21:00 [facility]) Normal Saline: Order: Normal Saline (0.9 % sodium chloride) - Dose: 1000 mg : IV Fluid Infusion Schedule: Now Ordered by: Chago Knight MD Entered by: Chago Knight MD [place] Aug 12, 2016 17:51 , Acknowledged by: Germania Andrade RN [place] Aug 12, 2016 17:52 Documented as given by: Germania Andrade RN [place] Aug 12, 2016 17:55 Patient, Medication, Dose, Route and Time verified prior to administration. IV SITE #1 IV fluids established for hydration, IV SITE #1 1st bag hung, IV SITE #1 bolus of 1000 ml established, IV SITE #1 Rate of bolus, wide open, via primary tubing, Catheter placement confirmed via flush prior to administration, IV site without signs or symptoms of infiltration during medication administration, No swelling during administration, No drainage during administration, IV flushed after administration, Correct patient, time, route, dose and medication confirmed prior to administration, Patient advised of actions and side-effects prior to administration, Allergies confirmed and medications reviewed prior to administration. : Follow Up : No signs or symptoms of allergic reaction noted, &a-1R&a+25V*p+0X*n3669H*c202B*c15G*c2P*p-0X&a-25V&a+1R Name: Carlos Luna : 1980 M36 MedRec: [id number] AcctNum: [id number] Prepared: SatAug 13, 2016 05:43 by Interface Page 9 of 21 pMD [facility] EMERGENCY RECORD _IV SITE #1:_, IV fluid infusion discontinued, on SatAug 12, 2016 20:30, Total fluid hydration time IV site 1 2 hours, 40 minutes, ., Total amount infused: 1L. (20:30 [facility]) Normal Saline: Order: Normal Saline (0.9 % sodium chloride) - Dose: 1000 mg : IV Fluid Infusion Schedule: Now Ordered by: Chago Knight MD Entered by: Chago Knight MD SatAug 12, 2016 18:55 , Acknowledged by: Adela Guan RN [place] Aug 12, 2016 19:10 Documented as given by: Quiana Mcginnis RN [place] Aug 12, 2016 20:40 Patient, Medication, Dose, Route and Time verified prior to administration. IV SITE #1 IV fluids established for hydration, IV SITE #1 into right hand, IV SITE #1 2nd bag hung, amount 1 Liter hung, IV SITE #1 bolus of 1000 ml established, IV SITE #1 Rate of bolus, wide open, via primary tubing, via pump tubing, Awake and alert- acceptable, Catheter placement confirmed via flush prior to administration, IV site without signs or symptoms of infiltration during medication administration, No swelling during administration, No drainage during administration, IV flushed after administration, Correct patient, time, route, dose and medication confirmed prior to administration, Patient advised of actions and side-effects prior to administration, Allergies confirmed and medications reviewed prior to administration. : Follow Up : No signs or symptoms of allergic reaction noted, _IV SITE #1:_, IV fluid infusion continued upon transfer from emergency department, on SatAug 12, 2016 22:28, Total fluid hydration time IV site 1 1 hour, 50 minutes, ., Total amount infused: 750ML. (22:50 [facility]) Phenergan injection: Order: Phenergan injection (promethazine HCl) - Dose: 25 mg : Intramuscular Schedule: Now Ordered by: Chago Knight MD Entered by: Chago Knight MD SatAug 12, 2016 17:52 , Acknowledged by: Germania Andrade RN SatAug 12, 2016 17:52 Documented as given by: Germania Andrade RN SatAug 12, 2016 17:55 Patient, Medication, Dose, Route and Time verified prior to administration. IM medication, Medication administered to right buttock, Correct patient, time, route, dose and medication confirmed prior to administration, Patient advised of actions and side-effects prior to administration, Allergies confirmed and medications reviewed prior to administration. : Follow Up : No signs or symptoms of allergic reaction noted, Decreased nausea. (19:00 [facility]) Protonix intravenous: Order: Protonix intravenous (pantoprazole sodium) - Dose: 80 mg : IV Push Schedule: Now Ordered by: Chago Knight MD Entered by: Chago Knight MD [place] Aug 12, 2016 17:52 , Acknowledged by: Inessa Mabry [place] Aug 12, 2016 18:24 &a-1R&a+25V*p+0X*f5763G*c202B*c15G*c2P*p-0X&a-25V&a+1R Name: Carlos Luna : 1980 M36 MedRec: [id number] AcctNum: [id number] Prepared: SatAug 13, 2016 05:43 by Interface Page 10 of 21 pMD [facility] EMERGENCY RECORD Documented as given by: Germania Andrade RN [place] Aug 12, 2016 18:50 Patient, Medication, Dose, Route and Time verified prior to administration. Amount given: 80, IV SITE #1 IVP, subsequent different medication, Slowly, Catheter placement confirmed via flush prior to administration, IV site without signs or symptoms of infiltration during medication administration, No swelling during administration, No drainage during administration, IV flushed after administration, Correct patient, time, route, dose and medication confirmed prior to administration, Patient advised of actions and side-effects prior to administration, Allergies confirmed and medications reviewed prior to administration. vancomycin intravenous: Order: vancomycin intravenous (vancomycin HCl) - Dose: 1 g : IV Piggy Back Schedule: Now Ordered by: Chago Knight MD Entered by: Chago Knight MD [place] Aug 12, 2016 19:12 , Acknowledged by: Adela Guan RN [place] Aug 12, 2016 19:58 Documented as given by: Quiana Mcginnis RN [place] Aug 12, 2016 20:30 Patient, Medication, Dose, Route and Time verified prior to administration. IV SITE #2, IVPB or drip, initial infusion, IVPB mixed in: 250ml, Fluid: 0.9NS, via primary tubing, via pump tubing, on an IV pump, at 200 ml/hr, Awake and alert- acceptable, Catheter placement confirmed via flush prior to administration, IV site without signs or symptoms of infiltration during medication administration, No swelling during administration, No drainage during administration, IV flushed after administration, Correct patient, time, route, dose and medication confirmed prior to administration, Patient advised of actions and side-effects prior to administration, Allergies confirmed and medications reviewed prior to administration. : Follow Up : No signs or symptoms of allergic reaction noted, _IV SITE #2:_, Medication infusion discontinued, on SatAug 12, 2016 21:50, Total infusion time IV site 2 1 hour, 20 minutes, ., Total amount infused: 250ML. (21:50 [facility]) Zosyn: Order: Zosyn (piperacillin sodium/tazobactam sodium) - Dose: 3.375 g : IV Piggy Back Schedule: Now Ordered by: Chago Knight MD Entered by: Chago Knight MD [place] Aug 12, 2016 19:13 , Acknowledged by: Adela Guan RN [place] Aug 12, 2016 19:56 Documented as given by: Quiana Mcginnis RN [place] Aug 12, 2016 20:05 Patient, Medication, Dose, Route and Time verified prior to administration. Amount given: 3.375, IV SITE #1 IVPB or drip, initial infusion, IVPB mixed in: 100ml, Fluid: 0.9NS, via primary tubing, via pump tubing, on an IV pump, Awake and alert- acceptable, Catheter placement confirmed via flush prior to administration, IV site without signs or symptoms of infiltration during medication administration, No swelling during administration, No drainage during administration, IV &a-1R&a+25V*p+0X*b6261G*c202B*c15G*c2P*p-0X&a-25V&a+1R Name: Carlos Luna : 1980 M36 MedRec: [id number] AcctNum: [id number] Prepared: SatAug 13, 2016 05:43 by Interface Page 11 of 21 pMD [facility] EMERGENCY RECORD flushed after administration, Correct patient, time, route, dose and medication confirmed prior to administration, Patient advised of actions and side-effects prior to administration, Allergies confirmed and medications reviewed prior to administration. : Follow Up : No signs or symptoms of allergic reaction noted, _IV SITE #1:_, Medication infusion discontinued, on [place] Aug 12, 2016 20:35, 30 minutes, ., Total amount infused: 100ML. (20:35 [facility]) HPI GI BLEED (19:23 [facility]) CHIEF COMPLAINT: Patient presents for evaluation of hematemesis, Number of times: 1, described as bright red blood. HISTORIAN: History provided by patient, Additional history obtained from EMS, Pt. comes from skilled nursing with complaint of one week of nonbloody, nonbilious emesis, and development yesterday of subjective F&C. Today patient reports vomited so many times that he began having pain in the chest and throat, followed by one episode of reportedly large amount of bright red blood (patient cannot quantify the amount), so patient brought to ED. Patient reports burning epigastric pain radiating to the chest, and N&V. States he has also had watery black diarrhea several times daily for past several days. Patient denies fall, trauma, change in diet and ill contacts. No other sources of bleeding or excessive bruising. Patient does report that he has a gastric ulcer, for which he takes ranitidine. Not taking any blood thinning medications. LOCATION: Symptoms are localized, most severe in the epigastrium, Radiation to the chest, No migration of pain. QUALITY: Pain is sharp in nature, described as stabbing, described as burning. SEVERITY: Maximum severity of symptoms severe, Currently symptoms are severe. TIME COURSE: Gradual onset of symptoms, 7, days ago, Symptoms are constant, Symptoms are worsening. ASSOCIATED WITH: Associated with abdominal pain, Associated with chills, Associated with dizziness, Associated with fever, No associated flank pain, Associated with loss of appetite, Associated with nausea, No associated night sweats, No associated rectal surgery, No associated syncope, No associated trauma, Associated with inability to tolerate oral intake, Associated with vomiting, Associated with weakness, Denies any other complaints. EXACERBATED BY: Patient's condition exacerbated by eating. RELIEVED BY: Patient's condition relieved by nothing. RISK FACTOR: Risk factors for GI bleed, No non-steroidal anti-inflammatory drug use, No alcohol abuse, No smoking, No congestive heart failure, No liver disease, No coagulopathy, No Helicobacter pylori infection, No Spencer-Wallace syndrome, include history of previous GI bleed, No history of AAA repair. &a-1R&a+25V*p+0X*m5536H*c202B*c15G*c2P*p-0X&a-25V&a+1R Name: Carlos Luna : 1980 M36 MedRec: [id number] AcctNum: [id number] Prepared: SatAug 13, 2016 05:43 by Interface Page 12 of 21 pMD [facility] EMERGENCY RECORD ROS (19:28 JOHE) CONSTITUTIONAL: Historian reports chills, reports fever, reports malaise, denies night sweats, reports weakness. EYES: Historian denies eye pain, denies eye redness, denies vision changes. ENT: Historian denies drooling, denies dysphagia, denies epistaxis, denies otalgia, denies rhinorrhea, denies sinus pain, reports sore throat, denies stridor, denies voice changes. CARDIOVASCULAR: Historian reports chest pain, denies diaphoresis, denies dyspnea on exertion, denies orthopnea, denies syncope, denies palpitations. no carotid bruits. RESPIRATORY: Historian denies cough, reports shortness of breath, denies sputum, denies stridor, denies wheezing. GI: Historian reports abdominal pain, reports appetite changes, denies constipation, reports diarrhea, reports hematemesis, denies hematochezia, reports melena, reports nausea, reports stool changes, reports vomiting. GENITOURINARY MALE: Historian denies dysuria, denies hematuria, reports hesitancy, denies urinary frequency, reports urine output changes, denies urinary urgency. MUSCULOSKELETAL: Historian denies back pain, denies joint redness, denies joint stiffness, denies joint swelling, denies neck pain. SKIN: Historian denies rash, denies skin changes, denies skin lesions. NEUROLOGIC: Historian reports dizziness, denies focal weakness, denies gait changes, denies headache, denies paralysis, denies paresthesias, denies seizures. HEMO/LYMPHATIC: Historian denies abnormal blood clotting, denies easy bruising, denies gum bleeding, denies petechiae. PSYCHIATRIC: Historian denies alcohol abuse, denies drug abuse. NOTES: All systems reviewed, negative except as described above. PAST MEDICAL HISTORY (17:52 [facility]) MEDICAL HISTORY: Notes: GASTROPARESIS, SEIZURES, Past medical history includes history of diabetes, history of hyperlipidemia, history of hypertension, pulmonary disease. asthma. MALE SURGICAL HISTORY: Patient has no surgical history. PSYCHIATRIC HISTORY: Psychiatric history includes, depression. SOCIAL HISTORY: Patient denies alcohol use, Patient denies drug use, Patient has no smoking history, Lives, [facility]. PHYSICAL EXAM (19:30 [facility]) CONSTITUTIONAL: Vital Signs Reviewed, Patient appears non toxic, Patient alert and oriented to person, place and time. &a-1R&a+25V*p+0X*s4351L*c202B*c15G*c2P*p-0X&a-25V&a+1R Name: Carlos Luna : 1980 M36 MedRec: [id number] AcctNum: [id number] Prepared: SatAug 13, 2016 05:43 by Interface Page 13 of 21 pMD [facility] EMERGENCY RECORD HEAD: Head exam normal, Head exam included findings of head atraumatic, normocephalic. EYES: Eye exam normal, Eye exam included findings of eyelids normal to inspection, Pupils equally round and reactive to light, Extraocular muscles intact, Conjunctiva normal, Sclera normal, No scleral icterus or pallor. ENT: Nose exam normal, no nasal deformity, no bleeding from nares, no bleeding from hypopharynx, no foreign body visualized, no septal hematoma, no septal necrosis, No turbinate mucosa discharge, Pharynx, injected bilaterally, no swelling, symmetrical, Uvula exam normal, midline, no edema, Tonsil exam normal, not enlarged, no exudates, Mouth exam included findings of, mucous membranes dry, no drooling, no lesions, no lacerations, Tongue not elevated. NECK: Neck exam normal, Neck exam included findings of normal range of motion, Trachea midline, no carotid bruits, no meningeal signs, no tenderness, no abrasions, no contusions, no ecchymosis. RESPIRATORY CHEST: Respiratory and chest exam normal, Respiratory exam included findings of no respiratory distress, Breath sounds clear, No wheezing, No rales, No rhonchi, Breath sounds not absent, Breath sounds not diminished, Chest exam included findings of chest movement symmetrical, Chest expansion equal, CTAB, good air movement bilaterally. CARDIOVASCULAR: Cardiovascular exam included findings of, rate tachycardic, rhythm regular, Heart sounds normal, Pedal pulses normal, Tachy, RR, no R/M/G. + pulses all ext., no bruits, no edema. ABDOMEN MALE: Abdominal exam included findings of abdomen tender, diffusely, moderate intensity, Bowel sounds normal, no pulsatile masses, no peritoneal signs, no rigidity, no guarding, no rebound, Soft, ND, mildly TTP diffusely, greatest in epigastrium. No guarding or rebound. + BS. No CVAT. BACK: Back exam normal, Back exam included findings of normal inspection, range of motion normal, no costovertebral angle tenderness. UPPER EXTREMITY: Upper extremity exam normal, Upper extremity exam included findings of inspection normal, Range of motion normal, Motor strength normal, Radial pulse normal. LOWER EXTREMITY: Lower extremity exam normal, Lower extremity exam included findings of inspection normal, Range of motion normal, Motor strength normal, Posterior tibial pulse normal, Pedal pulse normal, no edema. NEURO: Norman coma scale 15, Neuro exam findings include patient oriented to person, place and time, Speech normal, Cranial nerves intact, no focal motor deficits, no focal sensory deficits. SKIN: Skin exam normal, Skin exam included findings of skin warm, dry, and normal in color, no rash. LAB INTERPRETATION (20:30 JOHE) INTERPRETATION: I reviewed the lab results, CBC &a-1R&a+25V*p+0X*f8149M*c202B*c15G*c2P*p-0X&a-25V&a+1R Name: Carlos Luna : 1980 M36 MedRec: [id number] AcctNum: [id number] Prepared: SatAug 13, 2016 05:43 by Interface Page 14 of 21 pMD [facility] EMERGENCY RECORD abnormal, White blood cell count normal, Hemoglobin decreased, Hematocrit normal, Platelets normal, Chemistry abnormal, Glucose elevated, BUN normal, Creatinine normal, Bicarbonate decreased, PT normal, PTT normal, Amylase normal, Lipase normal, Urinalysis abnormal, positive for ketones, positive for glucose, positive for protein, Lactate abnormal-elevated, elevated, Blood cultures pending, Urine cultures pending. EVENTS TRANSFER: Triage to Emergency Emergency Room -04. ([place] Aug 12, 2016 17:42 [facility]) Removed from Emergency Emergency Room -04. (22:41 [facility]) EKG INTERPRETATION (18:11 JOHE) 12 LEAD EKG INTERPRETATION: 12 lead EKG interpreted by Emergency Department Physician at time of study, 12 lead EKG shows, sinus tachycardia, Rate (beats per minute): 113, with no ectopics, Conduction normal, ST segments normal, T waves normal, [place] normal, No other findings. DOCTOR NOTES TEXT: Discussed patient with Dr. Kaufman at [facility], who says he only takes call for the floor, and wants us to talk to ICU physician before accepting transfer. They will call us back shortly. (21:27 JOHE) [facility] (Dr. Hansen and Dr. Kaufman) feel patient would benefit from not going to [facility] due to distance, better to stay at [facility]. Discussed patient with Dr. Garcia, who accepts patient in transfer to [facility]. (21:57 JOHE) Addendum (correction) - Patient was transferred in stable condition via ambulance to [facility]. Patient was not transferred to [facility]. Dr. Garcia accepted patient to [facility] not [facility]. (SatAug 13, 2016 05:37 JO[facility]) PROBLEM LIST No recorded problems [facility] FINAL: PRIMARY: gi bleed, ADDITIONAL: Lactic acidosis. DISPOSITION PATIENT: Disposition Type: Transfer, Disposition: [facility] - [place], Disposition Transport: Ambulance, Condition: Fair. (20:13 JOHE) Patient left the department. (22:41 [facility]) Disposition: Transfer to [facility]. (SatAug 13, 2016 05:12 [facility]) PRESCRIPTION No recorded prescriptions &a-1R&a+25V*p+0X*l7882C*c202B*c15G*c2P*p-0X&a-25V&a+1R Name: Carlos Luna : 1980 M36 MedRec: [id number] AcctNum: [id number] Prepared: SatAug 13, 2016 05:43 by Interface Page 15 of 21 D [facility] EMERGENCY RECORD IMAGING *MEMORANDUM OF TRANSFER: Image captured from scanner. (22:07 ABWA) CONSENTS: Image captured from scanner. (22:07 ABWA) *EKG: Image captured from scanner. (22:08 [facility]) [facility] PAPERWORK: Image captured from scanner. (22:08 ABWA) Page 2 added. Image captured from scanner. (22: AB) Page 3 added. Image captured from scanner. (22:) Page 4 added. Image captured from scanner. (22:) Page 5 added. Image captured from scanner. (22:) Page 6 added. Image captured from scanner. (22:10 AB) *SUPPLY CHARGE SHEET: Image captured from scanner. (23:59 [facility]) ADMIN DIGITAL SIGNATURE: JESSENIA Romo, Dionne. (20:49 AB) MD Knight John. (22:11 JOHE) MD Knight John. (22:25 JOHE) MD Knight John. (SatAug 13, 2016 05:38 JOHE) RESULTS RADIOLOGY: XR Chest 1 View Portable Observe DT: SatAug 12, 2016 18:01, CXRP PORTABLE CHEST: Date: 08-12-16 Time: 6:21 p.m. History: Nausea, vomiting. FINDINGS: The heart size is normal. The lungs are expanded without focal areas of consolidation, pneumothorax , or pleural effusions. IMPRESSION: No radiographic evidence of acute cardiopulmonary process. POS: [facility] . (20:50 JOHE) XR Chest 1 View Portable Observe DT: SatAug 12, 2016 18:01, CXRP PORTABLE CHEST: Date: 08-12-16 Time: 6:21 p.m. History: Nausea, vomiting. &a-1R&a+25V*p+0X*x2866V*c202B*c15G*c2P*p-0X&a-25V&a+1R Name: Carlos Luna : 1980 M36 MedRec: [id number] AcctNum: [id number] Prepared: SatAug 13, 2016 05:43 by Interface Page 16 of 21 pMD [facility] EMERGENCY RECORD FINDINGS: The heart size is normal. The lungs are expanded without focal areas of consolidation, pneumothorax , or pleural effusions. IMPRESSION: No radiographic evidence of acute cardiopulmonary process. POS: [facility] . (20:50 JOHE) CT Abdomen Pelvis WO Con Observe DT: SatAug 12, 2016 17:57, ABDPELWO CT ABDOMEN AND PELVIS WITHOUT CONTRAST: History: Nausea, vomiting. FINDINGS: Absence of oral and IV contrast reduces the sensitivity of the exam for evaluation of solid organs a nd bowel. FINDINGS: There is a 9 mm peripheral nodule in the right lower lobe. A 6 mm nodule is seen in the left lung b ase. No free air or free fluid is seen in the abdomen or pelvis. No calcified gallstones are ident ified. No calculi are seen in the kidneys, ureters, or the urinary bladder. No hydroureteronephrosis is se en on either side. The small bowel loops are not abnormally dilated. There is fecal material in th e colon. No acute sesamoids are seen. IMPRESSION: 1. Bibasilar lung nodules. Dedicated CT scan of the chest is recommended on a non-emergent basis. 2. No CT evidence of urinary tract calculi or obstruction. POS: [facility] . (21:20 JOHE) LABORATORY: Lactic Acid for Sepsis Collection DT: [place] Aug 12, 2016 18:39, *Lactic Acid - Sepsis 2.8 - H mmol/L, Range (0.5-2.2). (18:46 JOHE) CBC with Differential Collection DT: [place] Aug 12, 2016 18:39, White Blood Cell (WBC) Count 7.4 thou/uL, Range (4.8-10.8), Red Blood Cell (RBC) Count 5.03 mill/uL, Range (4.70-6.10), *Hemoglobin 13.3 - L g/dL, Range (14.0-18.0), &a-1R&a+25V*p+0X*a9877F*c202B*c15G*c2P*p-0X&a-25V&a+1R Name: Carlos Luna : 1980 6 MedRec: [id number] AcctNum: [id number] Prepared: SatAug 13, 2016 05:43 by Interface Page 17 of 21 pMD [facility] EMERGENCY RECORD Hematocrit 43.2 %, Range (42.0-52.0), Mean Corpuscular Volume 86.0 fl, Range (80.0-94.0), *Mean Corpuscular Hemoglobin 26.5 - L pg, Range (27.0-31.0), *Mean Corpuscular HGB CONC 30.8 - L g/dL, Range (32.0-36.0), RBC Distribution Width 13.0 %, Range (11.5-14.5), Platelet Count 225 thou/uL, Range (130-400), Mean Platelet Volume 7.6 fL, Range (7.4-10.4), *%Neutrophils 79.3 - H %, Range (42.0-75.0), *%Lymphocytes 10.9 - L %, Range (21.0-51.0), %Monocytes 8.2 %, Range (0.0-10.0), %Eosinophils 0.5 %, Range (0.0-10.0), *%Basophils 1.1 - H %, Range (0.0-1.0), #Neutrophils 5.8 thou/uL, Range (1.40-6.50), *#Lymphocytes 0.8 - L thou/uL, Range (1.20-3.40), *#Monocytes 0.6 - H thou/uL, Range (0.11-0.59), #Eosinphils 0.0 thou/uL, Range (0.0-0.7), #Basophils 0.1 thou/uL, Range (0.0-0.2). (18:46 JOHE) PTT Collection DT: [place] Aug 12, 2016 18:39, See comment below , Anticoagulant? NONE Medical Necessity SUSPECT COAGULOPATHY , PTT 26.3 SEC, Range (22.9-36.1). (18:50 JOHE) Protime with INR Collection DT: [place] Aug 12, 2016 18:39, See comment below , Anticoagulant? NONE Medical Necessity SUSPECT COAGULOPATHY , Prothrombin Time 13.0 SEC, Range (12.0-14.7), INR-International Normal Ratio 0.9 , ATTENTION: READ CAREFULLY , The, recommended therapeutic ranges for oral anticoagulant treatments are: , , Low Intensity: 1.5 - 2.0 Moderate Intensity: 2.0, - 3.0 High Intensity (1): 2.5 - 3.5 High, Intensity (2): 3.0 - 4.0 CRITICAL: >, 4.0 . (18:50 JOHE) Lipase Collection DT: SatAug 12, 2016 18:39, *Lipase 4 - L U/L, Range (8-78). (18:54 JOHE) Amylase Collection DT: SatAug 12, 2016 18:39, Amylase 47 U/L, Range (25-125). (18:54 JOHE) Comprehensive Metabolic Panel Collection DT: [place] Aug 12, 2016 18:39, Sodium 137 mmol/L, Range (136-145), Potassium 4.1 mmol/L, Range (3.5-5.1), Chloride 101 mmol/L, Range (98-107), &a-1R&a+25V*p+0X*y2258E*c202B*c15G*c2P*p-0X&a-25V&a+1R Name: Carlos Luna : 1980 M36 MedRec: [id number] AcctNum: [id number] Prepared: SatAug 13, 2016 05:43 by Interface Page 18 of 21 pMD [facility] EMERGENCY RECORD *Carbon Dioxide 19 - L mmol/L, Range (22-29), *Anion Gap 21 - H mmol/L, Range (10-20), BUN (Urea Nitrogen) 15 mg/dL, Range (8.9-20.6), Creatinine 1.24 mg/dL, Range (0.7-1.3), Estimated GFR-MDRD 79 , Reference Range for Estimated GFR: Greater than 90, mL/min/1.73 m2 NOTE: The MDRD equation has not been validated for use, with the elderly (over 70 years of age), women, patients with, serious comorbid condition or persons with extremes of body size, muscle, mass, or nutritional status. , *Glucose 354 - H mg/dL, Range (70-105), Calcium 9.0 mg/dL, Range (7.8-10.44), Bilirubin, Total 0.4 mg/dL, Range (0.2-1.2), Protein, Total 7.7 g/dL, Range (6.0-8.3), NOTE: Plasma values are generally 0.3 to 0.5 g/dL higher than serum values, due to the presence of fibrinogen. , Albumin 4.1 g/dL, Range (3.5-5.0), *Globulin 3.6 - H g/dL, Range (2.4-3.5), *Alb/Glob Ratio 1.1 - L g/dL, Range (1.2-2.2), Alkaline Phosphatase 105 U/L, Range (40-150), AST (SGOT) 29 U/L, Range (5-34), ALT (SGPT) 43 U/L, Range (0-55). (18:54 JOHE) Urine Microscopic Collection DT: [place] Aug 12, 2016 19:10, RBC/HPF 0-3 HPF, Range (0-3), WBC/HPF 0-3 HPF, Range (0-3). (19:34 JOHE) Urinalysis w/ Rflx Microscopic Collection DT: [place] Aug 12, 2016 19:10, Color Yellow , Range (Yellow), Clarity Clear , Range (Clear), Specific [place], Urine 1.015 , Range (1.005-1.030), pH, Urine 7.0 , Range (5.0-9.0), Leukocyte Negative , Range (Negative), Nitrite Negative , Range (Negative), *Protein, Urine (Dipstick) 30 - H mg/dL, Range (Neg-Trace), *Glucose, Urine (Dipstick) 500 - H mg/dL, Range (Negative), *Ketone, Urine 40 - H mg/dL, Range (Negative), Urobilinogen 0.2 mg/dL, Range (0.2-1.0), Bilirubin Negative , Range (Negative), Blood, Urine Negative , Range (Negative). (19:34 JOHE) MICROBIOLOGY: Occult Blood, Stool DIAGNOSTIC: [id number] Collection DT: [place] Aug 12, 2016 18:20, See comment below , @ ER ROOM#: [id number] Source: Stool Spec Desc: PENDING, Fecal Occult Bld - Guaiac Negative for occult , blood . (19:34 [facility] LABORATORY: Beta-Hydroxybutyrate (Ketone) Collection DT: Sat &a-1R&a+25V*p+0X*p8396L*c202B*c15G*c2P*p-0X&a-25V&a+1R Name: Carlos Luna : 1980 M36 MedRec: [id number] AcctNum: [id number] Prepared: SatAug 13, 2016 05:43 by Interface Page 19 of pMD [facility] EMERGENCY RECORD 2016 20:13, *Beta-Hydroxybutyrate (Ketone) 1.07 - H mmol/L, Range (0.02-0.27). (20:32 [facility]) Blood Gas-Venous Collection DT: SatAug 12, 2016 20:56, pH (venous) 7.370 , Range (7.34-7.37), CO2 Tension (PvCO2) 43.0 mmHg, Range (41.0-51.0), *O2 Tension (PvO2) 135.0 - H mmHg, Range (35.0-45.0), Actual Bicarbonate (HCO3v) 24 mEq/L, Range (22-26), Base Excess -1.3 mEq/L, Range (0 (+/- 2.5)), *O2 Saturation-measured venous 89.0 - H %, Range (70.0-80.0), *Hemoglobin (Hb) 8.5 - L g/dL, Range (13.2-17.3). (21:20 [facility]: Type & Screen: [id number] Collection DT: SatAug 12, 2016 21:06, See comment below , Received Blood Or Been w/in Past 90 Days? UNKNOWN, Blood Type & Rh O POSITIVE - N . (21:26 [facility]) LABORATORY: [place] Collection DT: SatAug 12, 2016 21:30, *[place] 294 - H mg/dL, Range (70-110). (21:33 [facility] Hematocrit Collection DT: SatAug 12, 2016 18:39, Hematocrit 43.2 %, Range (42.0-52.0). () Hemoglobin Collection DT: SatAug 12, 2016 18:39, *Hemoglobin 13.3 - L g/dL, Range (14.0-18.0). () [place] Collection DT: SatAug 12, 2016 21:30, *[place] 294 - H mg/dL, Range (70-110). () Hematocrit Collection DT: SatAug 12, 2016 18:39, Hematocrit 43.2 %, Range (42.0-52.0). () Hemoglobin Collection DT: SatAug 12, 2016 18:39, *Hemoglobin 13.3 - L g/dL, Range (14.0-18.0). () CBC with Differential Collection DT: SatAug 12, 2016 18:39, White Blood Cell (WBC) Count 7.4 thou/uL, Range (4.8-10.8), Red Blood Cell (RBC) Count 5.03 mill/uL, Range (4.70-6.10), *Hemoglobin 13.3 - L g/dL, Range (14.0-18.0), Hematocrit 43.2 %, Range (42.0-52.0), Mean Corpuscular Volume 86.0 fL, Range (80.0-94.0), *Mean Corpuscular Hemoglobin 26.5 - L pg, Range (27.0-31.0), *Mean Corpuscular HGB CONC 30.8 - L g/dL, Range (32.0-36.0), RBC Distribution Width 13.0 %, Range (11.5-14.5), Platelet Count 225 thou/uL, Range (130-400), Mean Platelet Volume 7.6 fL, Range (7.4-10.4), *%Neutrophils 79.3 - H %, Range (42.0-75.0), *%Lymphocytes 10.9 - L %, Range (21.0-51.0), %Monocytes 8.2 %, Range (0.0-10.0), %Eosinophils 0.5 %, Range (0.0-10.0), *%Basophils 1.1 - H %, Range (0.0-1.0), #Neutrophils 5.8 thou/uL, Range (1.40-6.50), *#Lymphocytes 0.8 - L thou/uL, Range (1.20-3.40), *#Monocytes 0.6 - H thou/uL, Range (0.11-0.59), #Eosinphils 0.0 thou/uL, Range (0.0-0.7), &a-1R&a+25V*p+0X*u2287T*c202B*c15G*c2P*p-0X&a-25V&a+1R Name: Carlos Luna : 1980 M36 MedRec: [id number] AcctNum: [id number] Prepared: SatAug 13, 2016 05:43 by Interface Page 20 of 21 pMD [facility] EMERGENCY RECORD *#Basophils 0.8 - H thou/uL, Range (0.0-0.2), White Blood Cell (WBC) Count 7.4 thou/uL, Range (4.8-10.8), Red Blood Cell (RBC) Count 5.03 mill/uL, Range (4.70-6.10), *Hemoglobin 13.3 - L g/dL, Range (14.0-18.0), Hematocrit 43.2 %, Range (42.0-52.0), Mean Corpuscular Volume 86.0 fL, Range (80.0-94.0), *Mean Corpuscular Hemoglobin 26.5 - L pg, Range (27.0-31.0), *Mean Corpuscular HGB CONC 30.8 - L g/dL, Range (32.0-36.0), RBC Distribution Width 13.0 %, Range (11.5-14.5), Platelet Count 225 thou/uL, Range (130-400), Mean Platelet Volume 7.6 fL, Range (7.4-10.4), *%Neutrophils 79.3 - H %, Range (42.0-75.0), *%Lymphocytes 10.9 - L %, Range (21.0-51.0), %Monocytes 8.2 %, Range (0.0-10.0), %Eosinophils 0.5 %, Range (0.0-10.0), *%Basophils 1.1 - H %, Range (0.0-1.0), #Neutrophils 5.8 thou/uL, Range (1.40-6.50), *#Lymphocytes 0.8 - L thou/uL, Range (1.20-3.40), *#Monocytes 0.6 - H thou/uL, Range (0.11-0.59), #Eosinphils 0.0 thou/uL, Range (0.0-0.7), *#Basophils 0.8 - H thou/uL, Range (0.0-0.2). (:42 [facility]) Hematocrit Collection DT: [place] Aug 12, 2016 21:24, *Hematocrit 38.9 - L %, Range (42.0-52.0). (:42 [facility]) Hemoglobin Collection DT: SatAug 12, 2016 21:24, *Hemoglobin 12.5 - L g/dL, Range (14.0-18.0). (21:42 [facility]) Lactic Acid Collection DT: SatAug 12, 2016 22:00, Lactic Acid 2.1 mmol/L, Range (0.5-2.2). (22:19 [facility]) BLOOD BANK: Type & Screen: [id number] Collection DT: SatAug 12, 2016 21:06, See comment below , Received Blood Or Been w/in Past 90 Days? UNKNOWN, Blood Type & Rh O POSITIVE - N , Antibody Screen NEGATIVE - N . (22:19 [facility]) LABORATORY: Lactic Acid Sepsis >2 Reflex Collection DT: SatAug 12, 2016 18:45, Lactic Acid Sepsis >2 Reflex Additional Lactate , testing will be performed in 3 hrs according to the Sepsis Protocol. (22:19 [facility]) [place] Collection DT: [place] Aug 12, 2016 22:20, *[place] 220 - H mg/dL, Range (70-110). (22:25 [facility]) [place]: BABS=JESSENIA Romo, Dionne FAY=JENNIFER Melendez [place] JOHE=MD Antonia, Chago MAIER=JESSENIA Guan, Adela COUGHLINS=JESSENIA Andrade, Germania ESTRADA=JESSENIA Mcginnis, Quiana MCBE=Inessa Mabry &a-1R&a+25V*p+0X*z6595A*c202B*c15G*c2P*p-0X&a-25V&a+1R Name: JeremyWatsonerika Gardner : 1980 6 MedRec: [id number] AcctNum: [id number] Prepared: SatAug 13, 2016 05:43 by Interface Page 21 of 21 pMD MTDD
== END 2016-08-12 22:28 | disposition short-term general hospital (02) ==
LOC: EDBD → NAV ERS 17:39
DX: K92.2 Gastrointestinal hemorrhage, unspecified (principal); E87.2 Acidosis; E11.9 Type 2 diabetes mellitus without complications; E78.5 Hyperlipidemia, unspecified; I10 Essential (primary) hypertension; J45.909 Unspecified asthma, uncomplicated; F32.9 Major depressive disorder, single episode, unspecified; Z79.82 Long term (current) use of aspirin; Z79.4 Long term (current) use of insulin
CPT/HCPCS: 36415; 36416; 71010; 74176; 80053; 81003; 81015; 82010; 82150; 82272; 82805; 83605; 83690; 85025; 85610; 85730; 86850; 86900; 86901; 87040; 87086; 93005; 94760; 96361; 96365; 96372; 96375; C9113; J1815; J2270; J2543; J2550; J3370; J7050